=== PATIENT | male | born 1945 | race African-American/Black ===

== ENCOUNTER 2017-10-20 14:05 | Inpatient (IN) | payer MEDICARE ==
[2017-10-20 14:18] LABS: ADD MAN DIFF? NO
[2017-10-20 14:19] LABS: AGAP ISTAT 19 mmol/L (6-14); BUN ISTAT 35 mg/dL (8-26); CHLORIDE ISTAT 95 mmol/L (98-110); CREATININE ISTAT 2.1 mg/dL (0.5-1.4); GLUCOSE ISTAT 696 mg/dL (70-99); HEMATOCRIT ISTAT 41 % (37-52); HEMOGLOBIN ISTAT 13.9 g/dL (14-18); ION CA ISTAT 1.12 mmol/L (1.13-1.32); POTASSIUM ISTAT 4.1 mmol/L (3.5-5.0); SODIUM ISTAT 134 mmol/L (135-145); TOT CO2 ISTAT 24 mmol/L (23-32)
[2017-10-20 14:20] LABS: BASO % 0 % (0-3); EOS # 0.3 x10^3/uL (0.0-0.7); EOS % 4 % (0-3); HEMATOCRIT 40.2 % (39.0-53.0); HEMOGLOBIN 12.2 g/dL (13.0-17.5); LYMPH # 3.5 x10^3/uL (1.0-4.8); LYMPH % 39 % (24-48); MEAN CORPUSCULAR HEMOGLOBIN 18 pg (25-35); MEAN CORPUSCULAR HGB CONC 30 g/dL (31-37); MEAN CORPUSCULAR VOLUME 59 fL (79-100); MONO # 0.8 x10^3/uL (0.0-1.1); MONO % 9 % (0-9); NEUT # 4.3 x10^3uL (1.8-7.7); NEUT % 48 % (31-73); PLATELET COUNT 230 x10^3/uL (140-400); RED BLOOD COUNT 6.82 x10^6/uL (4.30-5.70); RED CELL DISTRIBUTION WIDTH 17.8 % (11.5-14.5)
[2017-10-20] MEDS: IV NORMAL SALINE 1000ML BAG 1,000 ML IV ×3 (14:23→22:35)
[2017-10-20 14:26] LABS: TROPONIN BY ISTAT 0.01 ng/ml (<0.08)
[2017-10-20 14:37] LABS: ALBUMIN 3.8 g/dL (3.4-5.0); ALBUMIN/GLOBULIN RATIO 0.9 (1.0-1.7); ALK PHOS 139 U/L (46-116); ALT (SGPT) 37 U/L (16-63); ANION GAP 11 (6-14); AST (SGOT) 19 U/L (15-37); BLOOD UREA NITROGEN 37 mg/dL (8-26); BUN/CREATININE RATIO 14 (6-20); CALCIUM 9.2 mg/dL (8.5-10.1); CARBON DIOXIDE 26 mmol/L (21-32); CHLORIDE 93 mmol/L (98-107); CREATININE 2.6 mg/dL (0.7-1.3); GFR 29.6; LIPASE 110 U/L (73-393); SODIUM 130 mmol/L (136-145); TOTAL BILIRUBIN 0.8 mg/dL (0.2-1.0); TOTAL PROTEIN 7.9 g/dL (6.4-8.2)
[2017-10-20 14:39] LABS: GLUCOSE 741 mg/dL (70-99)
[2017-10-20 14:40] LABS: TROPONINI < 0.017 ng/mL (0.000-0.055)
[2017-10-20 14:41] LABS: NT-PRO BNP 99 pg/mL (0-124)
[2017-10-20] MEDS: INSULIN REGULAR 100 UNIT/ML 10ML VIAL. IV (14:46)
[2017-10-20 14:55] LABS: INFLUENZA A PATIENT NEGATIVE (NEGATIVE); INFLUENZA B PATIENT NEGATIVE (NEGATIVE); OBC FLU VALID
[2017-10-20] MEDS ORDERED: ONDANSETRON PF 4 MG/2 ML VIAL. IV (15:45)
[2017-10-20] MEDS ORDERED: ACETAMINOPHEN 325 MG TABLET. PO (15:45)
[2017-10-20 16:02] LABS: ANISOCYTOSIS SLIGHT; HYPOCHROMIA MARKED; MICROCYTOSIS MARKED; PLT ESTIMATE ADEQUATE (ADEQUATE); POIKILOCYTOSIS SLIGHT
[2017-10-20 16:03] LABS: OVALOCYTES FEW; TARGET CELLS FEW
[2017-10-20 16:04] LABS: SCHISTOCYTES FEW
[2017-10-20 17:26] LABS: BILIRUBIN,URINE NEGATIVE (NEG); CLARITY,URINE CLEAR; COLOR,URINE YELLOW; GLUCOSE,URINE >=1000 mg/dL (NEG); NITRITE,URINE NEGATIVE (NEG); PH,URINE 5.5; PROTEIN,URINE NEGATIVE (NEG-TRACE); UROBILINOGEN,URINE 0.2 mg/dL (0.2 mg/dL)
[2017-10-20 17:31] LABS: BACTERIA,URINE 0 /HPF (0-FEW); RBC,URINE 0 /HPF (0-2); WBC,URINE OCC /HPF (0-4)
[2017-10-20] MEDS ORDERED: DEXTROSE 50% 25 GM / 50ML DISP.SYRIN. IV (18:30)
[2017-10-20] MEDS: INSULIN ASPART 300 UNITS/3 ML INSULN.PEN SQ ×2 (18:59→22:04)
[2017-10-20 19:11] LABS: GLUCOSE 851 mg/dL (70-99)
[2017-10-20 21:50] LABS: TROPONINI < 0.017 ng/mL (0.000-0.055)
[2017-10-20 23:11] LABS: POC GLUCOSE 442 mg/dL (70-99)
[2017-10-21] MEDS: GLIMEPIRIDE 2 MG TABLET. PO ×2 (00:09→09:19)
[2017-10-21] MEDS: INSULIN ASPART 300 UNITS/3 ML INSULN.PEN SQ ×7 (00:10→17:48)
[2017-10-21 01:29] LABS: POC GLUCOSE 228 mg/dL (70-99)
[2017-10-21] MEDS ORDERED: PNEUMOCOCCAL VAX SCREEN BY RX. MC (01:30)
[2017-10-21] MEDS ORDERED: INFLUENZA VAX SCREEN BY RX. MC (01:30)
[2017-10-21 04:50] LABS: ADD MAN DIFF? NO
[2017-10-21 05:12] LABS: BASO % 0 % (0-3); EOS # 0.4 x10^3/uL (0.0-0.7); EOS % 4 % (0-3); HEMATOCRIT 37.6 % (39.0-53.0); HEMOGLOBIN 11.6 g/dL (13.0-17.5); LYMPH # 3.2 x10^3/uL (1.0-4.8); LYMPH % 30 % (24-48); MEAN CORPUSCULAR HEMOGLOBIN 18 pg (25-35); MEAN CORPUSCULAR HGB CONC 31 g/dL (31-37); MEAN CORPUSCULAR VOLUME 58 fL (79-100); MONO # 0.9 x10^3/uL (0.0-1.1); MONO % 8 % (0-9); NEUT % 57 % (31-73); PLATELET COUNT 202 x10^3/uL (140-400); RED BLOOD COUNT 6.53 x10^6/uL (4.30-5.70); RED CELL DISTRIBUTION WIDTH 17.4 % (11.5-14.5); WHITE BLOOD COUNT 10.4 x10^3/uL (4.0-11.0)
[2017-10-21 05:29] LABS: ANION GAP 7 (6-14); BLOOD UREA NITROGEN 33 mg/dL (8-26); CALCIUM 8.7 mg/dL (8.5-10.1); CARBON DIOXIDE 29 mmol/L (21-32); CHLORIDE 105 mmol/L (98-107); CREATININE 1.6 mg/dL (0.7-1.3); GFR 51.8; POTASSIUM 3.5 mmol/L (3.5-5.1); SODIUM 141 mmol/L (136-145)
[2017-10-21 05:32] LABS: GLUCOSE 84 mg/dL (70-99)
[2017-10-21] MEDS: IV NORMAL SALINE 1000ML BAG 1,000 ML IV (05:58)
[2017-10-21 05:59] LABS: TROPONINI < 0.017 ng/mL (0.000-0.055)
[2017-10-21 08:30] LABS: POC GLUCOSE 92 mg/dL (70-99)
[2017-10-21] MEDS: PNEUMOC CONJ VACC 23-VALENT 0.5 ML VIAL. VAX IM (09:00)
[2017-10-21 10:14] LABS: MAGNESIUM 2.4 mg/dL (1.8-2.4)
[2017-10-21 10:14] LABS: CHOLESTEROL 156 mg/dL (0-200); CHOLESTEROL/HDL RATIO 4.1; HDLC 38 mg/dL (40-60); LDLC 89 mg/dL (0-100); NON-HDL CHOLESTEROL 118 mg/dL (0-129); TRIGLYCERIDES 147 mg/dL (0-150); VLDLC 29 mg/dL (0-40)
[2017-10-21 10:22] LABS: THYROID STIM HORMONE (TSH) 2.414 uIU/mL (0.358-3.74)
[2017-10-21 11:29] LABS: POC GLUCOSE 157 mg/dL (70-99)
[2017-10-21] MEDS: FLU VACC QS2017-18 (36MOS+)/PF 0.5 ML SYRINGE. VAX IM (15:22)
[2017-10-21 15:26] LABS: % SAT IRON 13 % (15-34); IRON,SERUM 27 ug/dL (65-175)
[2017-10-21 15:40] LABS: FERRITIN 175 ng/mL (26-388)
[2017-10-21 18:26] LABS: POC GLUCOSE 199 mg/dL (70-99)
[2017-10-21 20:33] LABS: POC GLUCOSE 159 mg/dL (70-99)
[2017-10-21] MEDS: INSULIN DETEMIR 300 UNITS/3 ML INSULN.PEN. SQ (22:09)
[2017-10-22 03:16] LABS: HEMOGLOBIN A1C 11.5 % (4.8-5.6)
[2017-10-22 08:33] LABS: POC GLUCOSE 162 mg/dL (70-99)
[2017-10-22 09:03] LABS: ADD MAN DIFF? NO
[2017-10-22 09:11] LABS: BASO % 1 % (0-3); EOS # 0.6 x10^3/uL (0.0-0.7); EOS % 8 % (0-3); HEMATOCRIT 35.1 % (39.0-53.0); HEMOGLOBIN 10.7 g/dL (13.0-17.5); LYMPH # 1.7 x10^3/uL (1.0-4.8); LYMPH % 22 % (24-48); MEAN CORPUSCULAR HEMOGLOBIN 18 pg (25-35); MEAN CORPUSCULAR HGB CONC 31 g/dL (31-37); MEAN CORPUSCULAR VOLUME 58 fL (79-100); MONO # 0.5 x10^3/uL (0.0-1.1); MONO % 7 % (0-9); NEUT # 4.8 x10^3uL (1.8-7.7); NEUT % 63 % (31-73); PLATELET COUNT 159 x10^3/uL (140-400); RED BLOOD COUNT 6.06 x10^6/uL (4.30-5.70); RED CELL DISTRIBUTION WIDTH 17.1 % (11.5-14.5); WHITE BLOOD COUNT 7.6 x10^3/uL (4.0-11.0)
[2017-10-22 09:43] LABS: ALBUMIN 3.3 g/dL (3.4-5.0); ALBUMIN/GLOBULIN RATIO 0.9 (1.0-1.7); ALK PHOS 125 U/L (46-116); ALT (SGPT) 45 U/L (16-63); ANION GAP 9 (6-14); AST (SGOT) 36 U/L (15-37); BLOOD UREA NITROGEN 21 mg/dL (8-26); BUN/CREATININE RATIO 15 (6-20); CALCIUM 8.8 mg/dL (8.5-10.1); CARBON DIOXIDE 27 mmol/L (21-32); CHLORIDE 104 mmol/L (98-107); CREATININE 1.4 mg/dL (0.7-1.3); GFR 60.4; GLUCOSE 183 mg/dL (70-99); POTASSIUM 3.7 mmol/L (3.5-5.1); SODIUM 140 mmol/L (136-145); TOTAL BILIRUBIN 0.9 mg/dL (0.2-1.0)
[2017-10-22] MEDS: GLIMEPIRIDE 2 MG TABLET. PO (09:46)
[2017-10-22] MEDS: INSULIN ASPART 300 UNITS/3 ML INSULN.PEN SQ ×4 (09:54→14:07)
[2017-10-22] MEDS ORDERED: DOCUSATE SODIUM 100 MG CAPSULE. PO (11:15)
[2017-10-22] MEDS ORDERED: FERROUS SULFATE 325 MG TABLET. PO (11:30)
[2017-10-22] MEDS: FOLIC/VIT B COMP W-C (RENAL) TABLET. PO (12:00)
[2017-10-22 12:14] LABS: POC GLUCOSE 199 mg/dL (70-99)
[2017-10-22] MEDS ORDERED: FERROUS SULFATE ORAL 300 MG/5 ML SOLUTION. PO (17:00)
== END 2017-10-22 14:10 | disposition home or self-care (01) | DRG 682 ==
LOC: ER 14:05 → 2 NORTH 15:32
DX: N17.0 Acute kidney failure with tubular necrosis (principal); E11.10 Type 2 diabetes mellitus with ketoacidosis without coma; E86.0 Dehydration; J44.9 Chronic obstructive pulmonary disease, unspecified; D50.9 Iron deficiency anemia, unspecified; E78.5 Hyperlipidemia, unspecified; G47.33 Obstructive sleep apnea (adult) (pediatric); M19.90 Unspecified osteoarthritis, unspecified site; I12.9 Hypertensive chronic kidney disease with stage 1 through stage 4 chronic kidney disease, or unspecified chronic kidney disease; M10.9 Gout, unspecified; K21.9 Gastro-esophageal reflux disease without esophagitis; N18.3 Chronic kidney disease, stage 3 (moderate); N52.9 Male erectile dysfunction, unspecified; Z82.49 Family history of ischemic heart disease and other diseases of the circulatory system; Z83.3 Family history of diabetes mellitus
CPT/HCPCS: 36415; 70450; 71045; 80047; 80048; 80053; 80061; 81001; 82728; 82947; 82962; 83036; 83540; 83550; 83690; 83735; 83880; 84443; 84484; 85025; 87804; 87804-59; 90686; 93005; 93306; 96361; 96374; 99285; 99285-25; J1815; J7030